=== PATIENT | female | born 1955 | race Caucasian/White ===

== ENCOUNTER → 2016-04-05 | Outpatient (CLI) | payer BC ==
[~2016-04-05] MED LIST: ALPR0.2565 PO; ASPI-482 PO; BYSTOLIC10 MG PO; DICL75TA PO; OLME1TAB5 PO; ZOLP10TA PO
--- NOTE | 2016-04-05 11:27 | RAD ---
DATE: 04/05/2016 EXAM: DIGITAL DIAGNOSTIC BILATERAL, BREAST RIGHT HISTORY: Possible right breast lump COMPARISON: 10/28/2007 This study was interpreted with the benefit of Computerized Aided Detection (CAD). FINDINGS: Reportedly the area of palpable component concern was at the 8:00 location in the right breast, although the patient cannot currently pinpoint a palpable lump. There are scattered fibroglandular densities in the breasts. No breast mass is seen. Several scattered benign-appearing microcalcifications are present. No suspicious microcalcifications are seen. Benign-appearing lymph node type densities are present in the axillary regions. Right breast ultrasound, 04/05/2016: A targeted ultrasound exam of the area of concern in the lateral aspect of the right breast was performed. Heterogeneous fibroglandular shadows are evident. No cystic or solid breast mass is seen. IMPRESSION: 1. Stable mammograms without evidence of malignancy. 2. The targeted ultrasound exam of the right breast reveals no abnormality. Further clinical surveillance of any area of palpable concern is suggested. BI-RADS CATEGORY: 2 BENIGN FINDING(S) RECOMMENDED FOLLOW-UP: 12M 12 MONTH FOLLOW-UP PQRS compliance statement: Patient information was entered into a reminder system with a target due date for the next mammogram. Mammography is a sensitive method for finding small breast cancers, but it does not detect them all and is not a substitute for careful clinical examination. A negative mammogram does not negate a clinically suspicious finding and should not result in delay in biopsying a clinically suspicious abnormality. "Our facility is accredited by the [employer] Mammography Program."
== END | disposition home or self-care (01) ==
LOC: KCIC MAMMO 08:39
PROVIDERS: ATTEND Obstetrics & Gynecology
DX: N63 Unspecified lump in breast (principal)
CPT/HCPCS: 76641; 77051; G0204; 77066

== ENCOUNTER → 2016-07-03 | Outpatient (CLI) | payer BC ==
--- NOTE | 2016-07-04 10:20 | KCIC ---
PROCEDURE MR of the right knee HISTORY Right knee pain. Pain is chronic. Swelling. Weakness. TECHNIQUE Standard multiplanar sequences are obtained. COMPARISON FINDINGS Degenerative tear of the medial meniscus. Degenerative tear of the lateral meniscus. The anterior cruciate ligament is poorly seen. There is a large lateral femoral side wall osteophyte which displaces the anterior cruciate ligament which may be the cause of its limited visibility. No definite acute rupture is seen. No acute pivot-shift marrow contusions or obvious tibial translation. Posterior cruciate ligament intact. Medial collateral ligament intact. Iliotibial band unremarkable. Fibular collateral ligament, biceps femoris tendon and popliteus tendon are intact. The extensor mechanism is intact. Small joint effusion. There is some nodular opacity at the posterior knee, may represent synovial scarring versus loose bodies within and posterior to the intercondylar notch and particularly along the posterior cruciate ligament. Severe cartilage loss at the medial compartment with subchondral bone exposure, flattening and deformity. There are also areas of severe chondromalacia at the lateral joint compartment and at the patellofemoral joint compartment. Moderate osteophytosis about the knee. No bone lesion. No acute fracture. No acute soft tissue injury. Trace Sullivan cyst. IMPRESSION 1. Medial meniscal tear. 2. Lateral meniscal tear. 3. Severe primary osteoarthritis. 4. Probable loose bodies at the posterior knee and intercondylar notch. Largest measures up to 19 millimeters diameter. 5. Poorly visualized anterior cruciate ligament, may be due to medial impingement and displacement by osteophyte. No definite tear but difficult to exclude. Electronically signed by: Jonas Boone MD (Jul 04, 2016 10:18:50)
== END | disposition home or self-care (01) ==
LOC: KCIC MRI 17:29
PROVIDERS: ATTEND Nurse Practitioner Family
DX: M17.11 Unilateral primary osteoarthritis, right knee (principal); S83.241A Other tear of medial meniscus, current injury, right knee, initial encounter; S83.282A Other tear of lateral meniscus, current injury, left knee, initial encounter
CPT/HCPCS: 73721

== ENCOUNTER → 2017-04-11 | Outpatient (CLI) | payer BC | END | disposition home or self-care (01) | LOC: KCIC MRI 14:23 | DX: R51 Headache (principal) | CPT/HCPCS: 70551 ==

== ENCOUNTER → 2017-05-07 | Outpatient (CLI) | payer BC | END | disposition home or self-care (01) | LOC: KCIC CT 10:04 | DX: J32.3 Chronic sphenoidal sinusitis (principal); J34.2 Deviated nasal septum | CPT/HCPCS: 70486 ==

== ENCOUNTER → 2017-07-12 | Outpatient (CLI) | payer BC | END | disposition home or self-care (01) | LOC: KCIC MRI 10:27 | DX: M47.892 Other spondylosis, cervical region (principal); M25.78 Osteophyte, vertebrae | CPT/HCPCS: 72141 ==

== ENCOUNTER → 2019-02-02 | Outpatient (CLI) | payer BC ==
[~2019-02-02] MED LIST changes: +ASPI81TA50 PO; +BUPIVACAINE MPF 0.25% 10 ML VIAL. ONE; +METO100T5 PO; +OLME1TAB25 PO; -OLME1TAB5 PO; +methylPREDNISolone ACETATE 40 MG/ML VIAL. ONE
--- NOTE | 2019-02-02 18:47 | PAIN ---
DATE OF SERVICE: 02/02/2019 INITIAL CONSULTATION FOR PAIN CLINIC CHIEF COMPLAINT: Mid upper back pain. HISTORY OF PRESENT ILLNESS: The patient is a 63-year-old female who presents with history of pain in the mid upper back for many years, worse over the past 6-8 months or so without any specific injury or action that she is aware of, but the pain has gotten worse. She has had this in the past as well about a year, and year and a half ago where she received some trigger point injections at [facility] and did well with this. The patient reports the pain is increasing now, does not recall any specific injury, sharp, intermittent in intensity, burning, pulling, and tight sensation in the mid upper back. She reports just about where her bra strap lies over her thoracic spine. The patient reports it awakens her from sleep at least 2-3 times at night, does not affect her bowel or bladder control or ability to walk, but does have significant pain, which is limiting her daily activities, especially reaching upward or using upper extremities, using any repetitive motions, bending or stooping and riding in a car has been difficult as well as sitting in a prolonged position for more than 15-20 minutes. The patient reports no loss of motor function. No radiation to the upper or lower extremities. The patient rates her disability rating from 0-10, 10 being the worst, as a 2 with family home responsibilities, 4 with recreation and occupational activities, 5 with social activity, 1 with sexual behavior, self-care and life support activities. The patient has a history of degenerative disk disease in the thoracic spine by her report. No recent diagnostic studies have been performed, however. The patient reports no radiation, but significant fatigability in the upper back with even standing, walking, especially sitting for prolonged periods. PAST MEDICAL HISTORY: Significant for hearing loss; cigarette smoking, quit 4-5 years ago; hypertension. PREVIOUS SURGERY: Include kidney stone extractions, kidney stents, hysterectomy, hammertoe correction, bariatric surgery 12/30/2018 and right total knee replacement. CURRENT MEDICATIONS: Include metoprolol, daily baby aspirin, omeprazole, Ambien, Xanax. ALLERGIES: The patient has no known drug allergies. FAMILY HISTORY: Significant for no major medical problems or conditions that she lists. SOCIAL HISTORY: The patient does not smoke, quit many years ago; drinks alcohol 2-3 times a year at the most; and does not use any illegal, illicit or recreational drugs. She is , lives with her spouse, and lives locally in [place], [place]. REVIEW OF SYSTEMS: The patient's review of systems is positive for those items mentioned in history of present illness. All systems reviewed and otherwise negative. It is complete, full and well documented on the patient's chart. PHYSICAL EXAMINATION: VITAL SIGNS: The patient's blood pressure is 125/75, pulse 59, respirations 18, temperature is 98.2 degrees Fahrenheit, height is 5 feet 8 inches, and weight is 229 pounds. GENERAL: The patient is awake, alert, oriented, appropriate, very pleasant demeanor. HEENT: Shows normocephalic, atraumatic. Extraocular movements are intact and symmetrical. Oral cavity: Mucous membranes moist and pink. Dentition is intact. NECK: Shows anterior throat supple without palpable lymphadenopathy noted. Swallow reflex symmetrical. CHEST: Shows normal on inspection. Breath sounds clear to auscultation bilaterally. HEART: Shows S1, S2 clear. No murmurs auscultated. ABDOMEN: Soft, nontender, nondistended. No palpable organomegaly is noted. No rebound or guarding demonstrated. BACK: Shows spine grossly in the midline, normal appearing thoracic kyphosis and lumbar lordotic curvature. Thoracic paraspinous muscle shows symmetrical on inspection, on palpation shows some very significant tenderness, very firm rope-like musculature in the mid upper distribution of thoracic paraspinous muscles. The patient shows good rotational motion; however, both laterally as well as extension and flexion of the thoracic spine without significant increase in pain, with palpation though very significant tenderness. This is true over the spinous processes themselves in the mid thoracic distribution, very firm rope-like musculature, again greater on the left than the right with some minor hypertrophy, left paraspinous musculature compared to the right. EXTREMITIES: The patient's upper extremity deep tendon reflexes at 2+ biceps, triceps tendons. Motor exam is strong with quality internship strength rated at 5/5 as is bicep and tricep flexion without significant deficit. Peripheral pulses are 2+ radial. No peripheral edema is noted. Lower extremities show deep tendon reflexes 1+ in the patellar and tendo calcaneus tendons. Motor exam is strong with 5/5 dorsiflexion, extension, quadriceps and hamstring flexion and equal bilaterally as well. The patient's skin shows warm and dry, good turgor. No edema. No sores, rashes or bruising throughout. IMPRESSION: 1. This is a 63-year-old female with long history of mid back pain, worse over the past few months, consistent with myofascial syndrome. 2. Hypertension. 3. Kidney disease. 4. Hearing loss. PLAN: Options were discussed with the patient including conservative medical management, physical therapies, interventional techniques and she would like to pursue interventional techniques. We discussed trigger point injections of the thoracic paraspinous musculature using description as well as anatomical models to describe the procedure. Risks were then discussed including, but not limited to bleeding, infection, possibility of intravascular injection and sequelae, spread of local anesthetic and numbness, pneumothorax, side effects of steroid medication as well as poor results regarding pain control. The patient understands and wished to proceed. The patient will return to clinic in approximately 2 weeks for followup. She was counseled as for return appointment, activity level and side effects to be aware of. DIAGNOSIS: Myofascial pain. PROCEDURE: Trigger point injections, bilateral thoracic paraspinous musculature under sterile prep and drape using local anesthetic. MEDICATION INJECTED: A total of 40 mg of Depo-Medrol plus total of 6 mL of 0.25% bupivacaine, 1 mL per injection after negative aspiration at each injection site. CONDITION AT DISCHARGE: Stable. The patient tolerated the procedure well, had no complications. EDILSON ROCHE MD DR: OSMAN/félix JOB#: [id number] / [id number] LAURO Mosquera APRN
== END ==
LOC: PNCL 07:58
PROVIDERS: ATTEND Anesthesiology
DX: M79.18 Myalgia, other site (principal); I10 Essential (primary) hypertension; Z87.891 Personal history of nicotine dependence; Z90.710 Acquired absence of both cervix and uterus; Z96.651 Presence of right artificial knee joint; Z98.890 Other specified postprocedural states; Z79.82 Long term (current) use of aspirin; Z72.89 Other problems related to lifestyle
CPT/HCPCS: 20552; J1030; J3490